=== PATIENT | male | born 1995 | race Caucasian/White ===

== ENCOUNTER 2019-02-17 21:41 | Emergency (ER) | payer BC ==
[~2019-02-17] VITALS: Ht 180.3 cm; Wt 72.6 kg
[2019-02-17 21:48] VITALS: BP 134/84
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
[2019-02-17] MEDS ORDERED: HYDROcodone/Acetamin 5/325 tab ORAL ONE (22:00)
[2019-02-17] MEDS ORDERED: Tetanus/Diptheria/Pertussis IM ONE (22:00)
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
[2019-02-17] MEDS ORDERED: Bacitracin Oint UD TOPIC ONE ×2 (22:57→23:00)
[2019-02-17] MEDS ORDERED: CEPHALEXIN500 MG ORAL (23:08)
[2019-02-17] MEDS ORDERED: IBUPROFEN600 MG ORAL (23:08)
[2019-02-17 23:11] VITALS: BP 114/74
--- NOTE | 2019-02-17 23:11 | NUR ---
ER DISCHARGE NOTE: Patient is cleared to be discharged per ERMD, pt is aox4, on room air, with stable vital signs. pt was given dc and prescription instructions, pt was able to verbalize understanding, pt id bandremoved without complications. pt is able to ambulate with steady gait. pt took all belongings.
== END 2019-02-17 23:11 | disposition home or self-care (01) ==
LOC: EMR 22:00
DX: S51.011A Laceration without foreign body of right elbow, initial encounter (principal); S52.021A Displaced fracture of olecranon process without intraarticular extension of right ulna, initial encounter for closed fracture; Z23 Encounter for immunization; V28.4XXA Motorcycle driver injured in noncollision transport accident in traffic accident, initial encounter; Y92.410 Unspecified street and highway as the place of occurrence of the external cause
CPT/HCPCS: 90471; 90715; 99283